=== PATIENT | male | born 1930 | race Caucasian/White ===

== ENCOUNTER 2017-09-18 08:21 | Emergency (ER) | payer OTHER ==
[~2017-09-18] VITALS: Ht 152.4 cm; Wt 44.9 kg
[~2017-09-18 08:21] MED LIST: PREDNISONE20 MG PO; PROVENTIL HFA6.7 GM IH; THEOPHYLLINE600 MG PO; [UNRECOGNIZED DRUG - OTHER]
[2017-09-18] MEDS ORDERED: DALIRESP500 MCG (08:31)
[2017-09-18] MEDS ORDERED: ALBUT (08:33)
[2017-09-18] MEDS ORDERED: [UNRECOGNIZED DRUG - OTHER] (08:33)
[2017-09-18] MEDS ORDERED: SPIRIVA RESPIMAT4 G1 (08:34)
[2017-09-18] MEDS ORDERED: BREO ELLIPTA I1 EACH (08:34)
== END 2017-09-18 20:53 | disposition home or self-care (01) ==
LOC: ER 08:21
DX: J09.X2 Influenza due to identified novel influenza A virus with other respiratory manifestations (principal); J44.1 Chronic obstructive pulmonary disease with (acute) exacerbation

== ENCOUNTER 2017-09-20 04:42 | Inpatient (IN) | payer OTHER ==
[~2017-09-20] VITALS: Ht 137.2 cm; Wt 44.5 kg
[~2017-09-20 04:42] MED LIST changes: +ALBUT; +BREO ELLIPTA I1 EACH; +DALIRESP500 MCG; +SPIRIVA RESPIMAT4 G1; +[UNRECOGNIZED DRUG - OTHER]
[2017-09-20] MEDS ORDERED: OSEL75CA (04:55)
== END 2017-09-27 18:45 | disposition home or self-care (01) | DRG 194 ==
LOC: ER 04:42 → SEC-K 10:10 → MEDJ 10:10
PROC: 4A033R1 Measurement of Arterial Saturation, Peripheral, Percutaneous Approach (ICD-10-PCS; principal; 2017-09-20)
PROC: 3E0F7GC Introduction of Other Therapeutic Substance into Respiratory Tract, Via Natural or Artificial Opening (ICD-10-PCS; 2017-09-20)
PROC: 8E0ZXY6 Isolation (ICD-10-PCS; 2017-09-20)
DX: J09.X2 Influenza due to identified novel influenza A virus with other respiratory manifestations (principal); J44.1 Chronic obstructive pulmonary disease with (acute) exacerbation; R09.02 Hypoxemia